=== PATIENT | male | born 1945 | race Caucasian/White ===

== ENCOUNTER 2024-11-15 12:04 | Inpatient (IN) | payer OTHER, MEDICARE ==
[~2024-11-15] VITALS: Ht 174 cm; Wt 61.4 kg
[~2024-11-15 12:04] MED LIST: PRED20TA2 PO
--- NOTE | 2024-11-15 12:35 | ED.PDOC ---
HPI Comments 79 y.o male with PMHx of VA, COPD, CHF, thyroid, and hyperlipidemia, presents to the ED for a chief complaint of substernal chest pain and exertional SOB that presented today. Patient described pain as sharp, constant, states he took ASA before calling 911 and on scene EMS gave 0.4mg Nitroglycerin which brought pain level from a 3/10 to a 0/10. Patient reports recent 5 day admission at [facility] for PNA and was discharged yesterday with antibiotics. Patient is concerned of chest pain due to cardiac history. Patient is on 2 liters of oxygen at home s/p recent d/c but increased it to 3 liters with some relief. He denies any tobacco use. Chief Complaint: Chest Pain Time Seen by MD: 12:09 Reviewed Notes: Nurses Notes, Bi Architect Notes, Medications, Allergies Allergies: Coded Allergies: NO KNOWN ALLERGIES (Unverified , 11/15/24) Information Source: Patient, Emergency Med Personnel Mode of Arrival: EMS Severity: Moderate Timing: Hours Duration: Since onset Prehospital treatment: 12 Lead EKG, Anatomic Pathologist, NTG Location: Substernal Radiation: No Radiation Quality: Sharp Onset: At Rest Cardiac Risk Factors: Hyperlipidemia, HTN, Diabetes PE Risk Factors: None History of: Similar pain in past, VA Modifying Factors: Nothing Associated Signs and Symptoms: SOB Past Medical History PAST MEDICAL HISTORY: CHF, COPD, DM, High Lipids, VA, Thyroid Surgical History: Cholecystectomy, Tonsillectomy Surgical History (Other): AAA repair Family History Family History: Family hx of heart apryl Social History Smoker: Non-Smoker Alcohol: Occasionally Drugs: Denies Drug Use Lives In: Home Constitutional: denies: chills, diaphoresis, fatigue, fever, malaise, sweats, weakness, others EENTM: denies: blurred vision, double vision, ear bleeding, ear discharge, ear drainage, ear pain, ear ringing, eye pain, eye redness, hearing loss, mouth pain, mouth swelling, nasal discharge, nose bleeding, nose congestion, nose pain, photophobia, tearing, throat pain, throat swelling, voice changes, others Respiratory: reports: SOB at rest, shortness of breath, SOB with excertion; denies: cough, hemoptysis, orthopnea, stridor, wheezing, others Cardiovascular: reports: chest pain; denies: dizzy spells, diaphoresis, Dyspnea on exertion, edema, irregular heart beat, left arm pain, lightheadedness, palpitations, PND, syncope, others Gastrointestinal: denies: abdomen distended, abdominal pain, blood streaked bowels, constipated, diarrhea, dysphagia, difficulty swallowing, hematemesis, melena, nausea, poor appetite, poor fluid intake, rectal bleeding, rectal pain, vomiting, others Genitourinary: denies: burning, dysuria, flank pain, frequency, hematuria, incontinence, penile discharge, penile sore, pain, testicle pain, testicle swelling, urgency, others Neurological: denies: dizziness, fainting, headache, left sided numbness, left sided weakness, numbness, paresthesia, pre-existing deficit, right sided numbness, right sided weakness, seizure, speech problems, tingling, tremors, weakness, others Musculoskeletal: denies: back pain, gout, joint pain, joint swelling, muscle pain, muscle stiffness, neck pain, others Integumetry: denies: bruises, change in color, change in hair/nails, dryness, laceration, lesions, lumps, rash, wounds, others Allergic/Immunocompromised: denies: Difficulty Healing, Frequent Infections, Hives, Itching, others Hematologic/Lymphatic: denies: anemia, blood clots, easy bleeding, easy bruising, swollen glands, others Endocrine: denies: excessive hunger, excessive sweating, excessive thirst, excessive urination, flushing, intolerance to cold, intolerance to heat, unexplained weight gain, unexplained weight loss, others Psychiatric: denies: anxiety, bipolar disorder, depression, hopeless, panic disorder, schizophrenia, sleepless, suicidal, others All Other Systems: Reviewed and Negative Physical Exam General Appearance: Moderate Distress HEENT: Normal ENT Inspection, Pharynx Normal, TMs Normal Neck: Full Range of Motion, Non-Tender, Normal, Normal Inspection Respiratory: Chest Non-Tender, Lungs Clear, No Accessory Muscle Use, No Respiratory Distress, Normal Breath Sounds Cardiovascular: No Edema, No JVD, No Murmur, No Gallop, Normal Peripheral Pulses, Regular Rate/Rhythm Breast Exam: Deferred Gastrointestinal: No Organomegaly, Non Tender, No Pulsatile Mass, Normal Bowel Sounds, Soft, Other (Scar mid abdomen from AAA repair) Genitalia: Deferred Pelvic: Deferred Rectal: Deferred Extremities: No calf tenderness, Normal capillary refill, Normal inspection, Normal range of motion, Non-tender, No pedal edema Musculoskeletal : Apperance: Normal Neurologic: Alert, networking engineer II-XII nml as Tested, Motor Weakness, Normal Affect, Normal Mood, No Sensory Deficits Cerebellar Function: Normal Reflexes: Normal Skin: Dry, Normal Color, Warm Lymphatic: No Adenopathy EKG EKG : Pulse Rate (adult): 100 Cardiac Rhythm: ST Hypertrophy: LAE Was a procedure done? Was a procedure done?: No CP Differential Dx Differential Diagnosis: Anxiety / Panic Attack, Electrolyte Disorder, VA, Pulmonary Embolus, Sinus Tachycardia Differential Diagnosis: Aortic dissection, Chest Wall Pain, Costochondritis, Gastritis, Myocardial Infarction, Pericarditis, Pneumonia, Pneumothorax X-Ray, Labs, Meds, VS Vital Signs Date Time Temp Pulse Resp B/P (MAP) Pulse Ox O2 Delivery O2 Flow Rate FiO2 11/15/24 15:19 88 16 98 Room Air* 0 21 11/15/24 15:18 98.4 88 16 107/68 (81) 98 98.4 11/15/24 15:15 83 11/15/24 12:35 100 11/15/24 12:07 100 11/15/24 12:05 98.9 86 22 90/58 (69) 96 Lab Test 11/15/24 14:30 11/15/24 13:06 Range/Units Troponin I High Sensitivity 475 *H 169 *H </=54 ng/L White Blood Count 9.0 4.4-10.8 10^3/uL Red Blood Count 4.15 L 4.5-5.90 10^6/uL Hemoglobin 12.5 L 13.5-17.5 g/dL Hematocrit 37.9 L 41.0-53.0 % Mean Corpuscular Volume 91.3 80.0-100.0 fL Mean Corpuscular Hemoglobin 30.2 28.0-32.0 pg Mean Corpuscular Hemoglobin Concent 33.0 32.0-36.0 g/dL Red Cell Distribution Width 14.9 H 11.8-14.3 % Platelet Count 213 140-450 10^3/uL Mean Platelet Volume 6.5 L 6.9-10.8 fL Neutrophils (%) (Auto) 86.9 H 37.0-80.0 % Lymphocytes (%) (Auto) 5.9 L 10.0-50.0 % Monocytes (%) (Auto) 6.8 0.0-12.0 % Eosinophils (%) (Auto) 0.3 0.0-7.0 % Basophils (%) (Auto) 0.1 0.0-2.0 % Neutrophils # (Auto) 7.8 1.6-8.6 10 ^3/uL Lymphocytes # (Auto) 0.5 0.4-5.4 10 ^3/uL Monocytes # (Auto) 0.6 0-1.3 10 ^3/uL Eosinophils # (Auto) 0 0-0.8 10 ^3/uL Basophils # (Auto) 0 0-0.2 10 ^3/uL Nucleated Red Blood Cells 0.1 % Sodium Level 131 L 136-145 mmol/L Potassium Level 3.7 3.5-5.1 mmol/L Chloride Level 99 98-107 mmol/L Carbon Dioxide Level 23 20-31 mmol/L Anion Gap 9 5-15 Blood Urea Nitrogen 22 9-23 mg/dL Creatinine 1.04 0.700-1.30 mg/dL Glomerular Filtration Rate Calc 74 >90 mL/min BUN/Creatinine Ratio 21.2 H 10.0-20.0 Serum Glucose 104 74-106 mg/dL Calcium Level 9.4 8.7-10.4 mg/dL B-Type Natriuretic Peptide 100.61 0-100 pg/mL EXAM: XY CHEST PORTABLE IMPRESSION: No acute cardiopulmonary disease. IV Hep-Lock was established The BNP is 100 The 1st troponin came back at 169 The repeat troponin level came back at 475 A repeat EKG was also done with no sign of any ST-elevation but because of the changes, we did consult with Cardiology. The billet cutter did come bedside and evaluate the patient. We did order an echocardiogram and also ordered the patient to be heparinized with a bolus of 4000 units as well as a heparin drip The patient was being admitted We did discuss the findings with the patient and his family member and they understand and agree with the management. We will continue to monitor the patient's blood pressure as well as pain scale Images Reviewed?: Images reviewed and evaluated by me Time of 1ST Reevaluation: 12:34 Reevaluation 1ST: Unchanged Patient Education/Counseling: Diagnosis, Treatment, Prognosis Family Education/Counseling: No Family Present Departure 1 Departure Time of Disposition: 15:31 Impression: Primary Impression: Non-STEMI (non-ST elevated myocardial infarction) Additional Impression: Acute chest pain Disposition: ADMITTED INPATIENT Admit to: Tele Condition: Fair Critical Care Note Critical Care Time?: Yes (45 min-critical care time only) Stability Stability form required: Yes Unstable for transfer: Telemetry monitoring (Telemetry monitoring required), ED Physician Assesment (Clinical assesment) Heart Score Heart Score: Heart Score Response (Comments) Value History Moderate Suspicious 1 EKG Repolarization Disturb 1 Age >65 2 Risk Factors >3 or Hx ASHD 2 Troponin >3 x's Normal limit 2 Total 8 I personally scribed for ARTURO MARKS MD ([email or web address]) on 11/15/24 at 12:35. Electronically submitted by Argelia Lopez ([email or web address]). I personally scribed for ARTURO MARKS MD ([email or web address]) on 11/15/24 at 13:19. Electronically submitted by Argelia Lopez ([email or web address]). ARTURO MARKS MD Nov 15, 2024 12:35
--- NOTE | 2024-11-15 12:37 | DVH ---
EXAM: XY CHEST PORTABLE Indication: cp Technique: Single frontal view of the chest was obtained Comparison: None FINDINGS: Lines and Tubes: None Lungs: No focal consolidation. Pleura: No effusion. No pneumothorax. Cardiomediastinal contours: Unremarkable Bones: No acute osseous abnormality. IMPRESSION: No acute cardiopulmonary disease.
[2024-11-15 13:20] LABS: Basophils # (auto) 0 10 ^3/uL (0-0.2); Basophils % (auto) 0.1 % (0.0-2.0); Eosinophils # (auto) 0 10 ^3/uL (0-0.8); Eosinophils % (auto) 0.3 % (0.0-7.0); Hematocrit 37.9 % (41.0-53.0); Hemoglobin 12.5 g/dL (13.5-17.5); Lymphocytes # (auto) 0.5 10 ^3/uL (0.4-5.4); Lymphocytes % (auto) 5.9 % (10.0-50.0); Mean Corpuscular Hemoglobin 30.2 pg (28.0-32.0); Mean Corpuscular Volume 91.3 fL (80.0-100.0); Monocytes # (auto) 0.6 10 ^3/uL (0-1.3); Monocytes % (auto) 6.8 % (0.0-12.0); Neutrophils # (auto) 7.8 10 ^3/uL (1.6-8.6); Neutrophils % (auto) 86.9 % (37.0-80.0); Nucleated Red Blood Cells % 0.1 %; Platelet Count (auto) 213 10^3/uL (140-450); Red Blood Cells 4.15 10^6/uL (4.5-5.90); Red Cell Distribution Width 14.9 % (11.8-14.3)
[2024-11-15 13:35] LABS: Chloride 99 mmol/L (98-107); Potassium 3.7 mmol/L (3.5-5.1)
[2024-11-15 13:36] LABS: Anion Gap 9 (5-15); Calcium 9.4 mg/dL (8.7-10.4); Carbon Dioxide 23 mmol/L (20-31)
[2024-11-15 13:40] LABS: Sodium 131 mmol/L (136-145)
[2024-11-15 13:41] LABS: BUN/Creatinine Ratio 21.2 (10.0-20.0); Blood Urea Nitrogen 22 mg/dL (9-23); Glucose 104 mg/dL (74-106)
[2024-11-15 15:19] VITALS: PULSE 88; RESP 16; O2SAT 98
[2024-11-15] MEDS ORDERED: MORPHINE SULFATE INJ 2 MG/ml SYRG IV PRN ×3 (15:30→16:15)
[2024-11-15] MEDS ORDERED: NITROGLYCERIN 0.4 MG SL TAB SL PRN ×2 (15:30→16:15)
--- NOTE | 2024-11-15 15:33 | ECG ---
[facility] Test Date: 2024-11-15 Test Time: 15:15:04 Pat Name: LIANNA MARTINEZ Department: ED Room: 0295T Gender: M City Manager: : 1945 Requested By: ARTURO MARKS Order Number: [id number] Reading MD: Sravan Bedolla Measurements Intervals Badger Rate: 83 P: 88 UT: 143 QRS: 77 QRSD: 96 T: 52 QT: 343 QTc: 403 Interpretive Statements Sinus rhythm Consider right atrial enlargement Nonspecific T abnormalities, anterior leads Electronically Signed On 11-18-2024 16:32:18 PST by Sravan Bedolla Please click the below link to view image of tracing.
[2024-11-15] MEDS: HEPARIN SODIUM (PORCINE) 5000 UNITS/ML 1ML VIAL IV ONE ×2 (15:55→15:59)
--- NOTE | 2024-11-15 15:59 | DVHINCON2 ---
Date Seen: Nov 15, 2024 Referring Physician MD Tess Reason for Consultation NSTEMI History of Present Illness This is a 79-year-old man who presented to the emergency room via EMS with a chief complaint of chest pain for approximately 1.5 hours prior to arrival. Localizes his chest pain to the left inframammary area and radiating across towards the right, pressure/heaviness like, constant, and associated with sh ortness of breath. He was medicated by EMS with NTG SL 0.4 mg x1 and unspecified ASA with successful relief of symptoms. The patient reports being discharged home from [facility] yesterday after a 5-day admission with the diagnoses of COPD exacerbation and PNA. Patient also reports undergoing a recent cardiac catheterization and coronary angiogram with successful PCI including one JASON at [facility] on 06/2023 and sent home only on single-antiplatelet therapy with ASA. He underwent multiple 12 lead electrocardiogram revealing a sinus rhythm with nonspecific ST changes to anteroseptal leads. Troponin levels are trending up with latest in the 400s ng/L warranting urgent Cardiology consultation. Other medical history includes abdominal aortic aneurysm repair on 2019, congestive heart failure, hypertension, dyslipidemia, COPD with O2 dependence, and remote history of tobacco use. Past Medical History Past medical history reviewed. No other significant than mentioned above. Past Surgical History PTCA with stent placement x1, 06/2024 AAA repair, 2019 Cholecystectomy Family History Family history reviewed. Social History Denies the use of illicit drugs, alcohol, or tobacco use. Stopped tobacco use 17 years ago. Allergies: Coded Allergies: NO KNOWN ALLERGIES (Unverified , 11/15/24) Home Meds Unable to retrieve home medications at this time. Current Medications Current Medications Medications (Trade) Dose Ordered Sig/Gregorio Route PRN Reason Start Time Stop Time Status Last Admin Heparin Sodium/ Dextrose 250 ml @ 7.188 mls/ hr Q24H IV 11/15/24 15:30 UNV Review of Systems Constitutional: No symptom reported Ears, Nose, & Throat: No symptom reported Eyes: No symptom reported Neurological: No symptoms reported Pulmonary/Respiratory: SOB Cardiovascular: Chest pain Gastrointestinal: No symptom reported Genitourinary: No symptom reported Musculoskeletal: No symptom reported Skin: No symptom reported Psychiatric: No symptom reported Endocrine: No symptom reported Hemotologic/Lymphatic: No symptom reported Vital Signs Vital Signs Date Time Temp Pulse Resp B/P (MAP) Pulse Ox O2 Delivery O2 Flow Rate FiO2 11/15/24 15:19 88 16 98 Room Air* 0 21 11/15/24 15:18 98.4 107/68 (81) 98.4 Physical Exam General Appearance: Cooperative. Well developed. Well nourished. In no acute distress Head Exam: Normal inspection Neck Exam: Normal inspection. Non-tender. Normal alignment Pulmonary/Respiratory: Chest non-tender. Diminished bilateral breath sounds Cardiovascular/Chest: Regular rate and rhythm. S1, S2. Sinus rhythm with nonspecific anteroseptal ST changes. No murmurs. Peripheral Pulses: 2+ Radial (R). 2+ Radial (L). 2+ Pedal (R). 2+ Pedal (L) Abdominal Exam: Normal bowel sounds. Soft. Nontender. No hepatospenomegaly. No masses Ankle Exam: Negative ankle edema Lower extremities: Negative lower extremity edema Neuro/Mental Status: A&O x4. Coherent Thoughts/Psych: Normal thought pattern. Appropriate mood and affect. Good judgement and insight Appearance: In no acute distress Skin Exam: Normal inspection. Normal color. Warm. Dry Labs/Diagnostic Data Labs Test 11/15/24 14:30 11/15/24 13:06 Range/Units Troponin I High Sensitivity 475 *H </=54 ng/L White Blood Count 9.0 4.4-10.8 10^3/uL Red Blood Count 4.15 L 4.5-5.90 10^6/uL Hemoglobin 12.5 L 13.5-17.5 g/dL Hematocrit 37.9 L 41.0-53.0 % Mean Corpuscular Volume 91.3 80.0-100.0 fL Mean Corpuscular Hemoglobin 30.2 28.0-32.0 pg Mean Corpuscular Hemoglobin Concent 33.0 32.0-36.0 g/dL Red Cell Distribution Width 14.9 H 11.8-14.3 % Platelet Count 213 140-450 10^3/uL Mean Platelet Volume 6.5 L 6.9-10.8 fL Neutrophils (%) (Auto) 86.9 H 37.0-80.0 % Lymphocytes (%) (Auto) 5.9 L 10.0-50.0 % Monocytes (%) (Auto) 6.8 0.0-12.0 % Eosinophils (%) (Auto) 0.3 0.0-7.0 % Basophils (%) (Auto) 0.1 0.0-2.0 % Neutrophils # (Auto) 7.8 1.6-8.6 10 ^3/uL Lymphocytes # (Auto) 0.5 0.4-5.4 10 ^3/uL Monocytes # (Auto) 0.6 0-1.3 10 ^3/uL Eosinophils # (Auto) 0 0-0.8 10 ^3/uL Basophils # (Auto) 0 0-0.2 10 ^3/uL Nucleated Red Blood Cells 0.1 % Sodium Level 131 L 136-145 mmol/L Potassium Level 3.7 3.5-5.1 mmol/L Chloride Level 99 98-107 mmol/L Carbon Dioxide Level 23 20-31 mmol/L Anion Gap 9 5-15 Blood Urea Nitrogen 22 9-23 mg/dL Creatinine 1.04 0.700-1.30 mg/dL Glomerular Filtration Rate Calc 74 >90 mL/min BUN/Creatinine Ratio 21.2 H 10.0-20.0 Serum Glucose 104 74-106 mg/dL Calcium Level 9.4 8.7-10.4 mg/dL B-Type Natriuretic Peptide 100.61 0-100 pg/mL Assessment Chest pain rule out progressive coronary artery disease Coronary artery disease status post PTCA with JASON x1 on 06/2024, on ASA Unspecified history of congestive heart failure, compensated History of AAA repair Hypertension Dyslipidemia Plan/Recommendation (Dr. Pedroza) Patient seen and examined at bedside by Dr. Pedroza. We agree with initiation of Heparin drip per pharmacy protocol for ACS. Continue serial troponin levels as well as chest pain protocol. Initiate DAPT including loading dose of Clopidogrel. We will obtain a transthoracic echocardiogram to further delineate structural heart disease. Obtain medical records from [facility] as the hospital reports a recent PTCA with stent placement with single-antiplatelet therapy at discharge. Monitor ECG changes and notify. Tentatively invasive cardiac work- up indicated at first available. Kindly call in the setting of acute changes, active chest pain, or progressive ECG changes. Thank you for allowing us to participate in this patient's care. Please call if you have any questions or concerns. Critical care time: 35 min. This medical document was created using an electronic medical record system with voice recognition software and computerized dictation system. Although this document has been carefully reviewed, there might still be some phonetic and typographical errors. Occasional wrong-word or ``sound-alike substitutions may have occurred due to the inherent limitations of voice recognition software. These areas are purely typographical due to imperfections of the software programs and do not reflect any compromise in the patient's medical care. Please read the chart carefully and recognize, using context, where these substitutions have occurred. Plan discussed with: Patient, Other NYHA Physical activity limitations: NA Date of Service: Nov 15, 2024 Billing Provider: ALBA PEDROZA MD Cardiology Common Codes: 36315-[id number] CARE 30-74 MIN MABEL DURANT PLANNING TECHNICIAN Nov 15, 2024 15:59
--- NOTE | 2024-11-15 16:08 | DVHHP2 ---
History of Present Illness Reason for Visit: Non-STEMI (non-ST elevated myocardial infarction) History of Present Illness The patient is a 79-year-old male with multiple past medical history including COPD, CHF, IL, and diabetes mellitus who presented to [facility] ED with complaint of chest pain. Patient reports symptoms progressively get worse with substernal chest pain, sharp in nature, constant, associated shortness of breaths on exertion, SOB at rest, getting worse that prompted this visit. Patient was seen and evaluated in the ED, laboratory data shows WBC 9.0, platelets 2 one three, sodium 131, potassium 3.7, BUN 22, creatinine 1.04, GFR 74, glucose 104, BNP 100, troponin was 169. Chest x-ray show no acute cardiopulmonary disease. Patient was given aspirin 162 mg p.o. x1, consult cardiology, please see medication orders section in the computer. On my assessment, patient denies chest pain at this moment, no dizziness, no headache, no diaphoresis, currently on oxygen, no nausea, no vomiting, no fever, no chills. Patient was admitted for further evaluation and medical management. Past Medical History CHF, COPD, DM, High Lipids, IL, Thyroid Past Surgical History Cholecystectomy, Tonsillectomy, AAA repair Family History Reviewed, noncontributory to the management of this case. Past Social History The patient lives at home, denies smoking, alcohol or illicit drugs abuse. Review of Systems Constitutional: Yes: Weakness; No: Fever, Chills, Sweats, Malaise, Other Eyes: No: Pain, Vision change, Conjunctivae inflammation, Eyelid inflammation, Other, Redness ENT: No: Ear pain, Ear discharge, Nose pain, Nose discharge, Nose congestion, Mouth pain, Mouth swelling, Throat pain, Throat swelling, Other Respiratory: Shortness of breath, SOB with excertion, Other (SOB at rest); No: Cough, Dry, Wheezing, Hemoptysis, Pleuritic Pain, Sputum, Wheezing Cardiovascular: Chest Pain; No: Palpitations, Orthopnea, Paroxysmal Noc. Dyspnea, Edema, Lt Headedness, Other Gastrointestinal: No: Nausea, Vomiting, Abdominal Pain, Diarrhea, Constipation, Melena, Hematochezia, Other Genitourinary: No Dysuria, No Frequency, No Incontinence, No Hematuria, No Retention, No Other Musculoskeletal: No: other, neck pain, shoulder pain, arm pain, back pain, hand pain, leg pain, foot pain Skin: No: Rash, Lesions, Jaundice, Bruising, Other Neurological: No: Weakness, Numbness, Incoordination, Change in speech, Confusion, Seizures, Other Allergies: Coded Allergies: NO KNOWN ALLERGIES (Unverified , 11/15/24) Medications Current Medications Medications Dose Ordered Sig/Gregorio Route Start Time Stop Time Status Last Admin Dose Admin Heparin Sodium/ Dextrose 250 ml @ 7 mls/hr Q24H IV 11/15/24 15:30 Aspirin 81 mg DAILY PO 11/16/24 10:00 Nitroglycerin 0.4 mg Q5MINP PRN SL 11/15/24 15:30 Morphine Sulfate 2 mg Q30M PRN IV 11/15/24 15:30 Clopidogrel Bisulfate 75 mg DAILY PO 11/16/24 10:00 UNV Atorvastatin Calcium 40 mg HS PO 11/15/24 22:00 UNV Exam Vital Signs Vital Signs Date Time Temp Pulse Resp B/P (MAP) Pulse Ox O2 Delivery O2 Flow Rate FiO2 11/15/24 15:19 88 16 98 Room Air* 0 21 11/15/24 15:18 98.4 107/68 (81) 98.4 General Appearance: Alert, Oriented X3, Cooperative, No acute distress HEENT: Atraumatic, PERRLA, EOMI, Mucous membr. moist/pink Respiratory: Clear to auscultation, Normal air movement Cardiovascular: Regular rate, Normal S1, Normal S2, No murmurs Abdominal: Normal bowel sounds, Soft, No tenderness, No hepatospenomegaly, No masses Extremities: No clubbing, No cyanosis, No edema, Normal pulses, No tend erness/swelling Skin: No rashes, No breakdown, No significant lesion Neuro: Normal speech, Normal tone, Sensation intact, Cranial nerves 3-12 NL, Reflexes 2+, Other (Generalized weakness) Psych/Mental Status: Mental status NL, Mood NL Labs/Xrays Labs Test 11/15/24 14:30 11/15/24 13:06 Range/Units Troponin I High Sensitivity 475 *H </=54 ng/L White Blood Count 9.0 4.4-10.8 10^3/uL Red Blood Count 4.15 L 4.5-5.90 10^6/uL Hemoglobin 12.5 L 13.5-17.5 g/dL Hematocrit 37.9 L 41.0-53.0 % Mean Corpuscular Volume 91.3 80.0-100.0 fL Mean Corpuscular Hemoglobin 30.2 28.0-32.0 pg Mean Corpuscular Hemoglobin Concent 33.0 32.0-36.0 g/dL Red Cell Distribution Width 14.9 H 11.8-14.3 % Platelet Count 213 140-450 10^3/uL Mean Platelet Volume 6.5 L 6.9-10.8 fL Neutrophils (%) (Auto) 86.9 H 37.0-80.0 % Lymphocytes (%) (Auto) 5.9 L 10.0-50.0 % Monocytes (%) (Auto) 6.8 0.0-12.0 % Eosinophils (%) (Auto) 0.3 0.0-7.0 % Basophils (%) (Auto) 0.1 0.0-2.0 % Neutrophils # (Auto) 7.8 1.6-8.6 10 ^3/uL Lymphocytes # (Auto) 0.5 0.4-5.4 10 ^3/uL Monocytes # (Auto) 0.6 0-1.3 10 ^3/uL Eosinophils # (Auto) 0 0-0.8 10 ^3/uL Basophils # (Auto) 0 0-0.2 10 ^3/uL Nucleated Red Blood Cells 0.1 % Sodium Level 131 L 136-145 mmol/L Potassium Level 3.7 3.5-5.1 mmol/L Chloride Level 99 98-107 mmol/L Carbon Dioxide Level 23 20-31 mmol/L Anion Gap 9 5-15 Blood Urea Nitrogen 22 9-23 mg/dL Creatinine 1.04 0.700-1.30 mg/dL Glomerular Filtration Rate Calc 74 >90 mL/min BUN/Creatinine Ratio 21.2 H 10.0-20.0 Serum Glucose 104 74-106 mg/dL Calcium Level 9.4 8.7-10.4 mg/dL B-Type Natriuretic Peptide 100.61 0-100 pg/mL PATIENT: SABRINA NATION ACCT: [id number] UNIT: [id number] : 1945 LOC: ER ROOM / BED: / AGE / SEX: 79 / M ADM STATUS: REG ER SERVICE 1217 ORDERING PHYSICIAN: ARTURO MARKS MD PROCEDURE(s): CXRP - CHEST PORTABLE REASON: cp ORDER NUMBER(s): [id number], ACCESSION NUMBER(s): [id number] EXAM: XY CHEST PORTABLE Indication: cp Technique: Single frontal view of the chest was obtained Comparison: None FINDINGS: Lines and Tubes: None Lungs: No focal consolidation. Pleura: No effusion. No pneumothorax. Cardiomediastinal contours: Unremarkable Bones: No acute osseous abnormality. IMPRESSION: No acute cardiopulmonary disease. Assessment/Plan Assessment/Plan Acute chest pain Acute respiratory distress Generalized weakness Non-STEMI (non-ST elevated myocardial infarction) Plan 1. Admit to telemetry unit 2. Breathing treatment 3. Pain control management 4. Management of fluids and electrolytes 5. Consultation for Cardiology 6. Diagnostic tests chest x-ray 7. DVT prophylaxis-on aspirin 8. Repeat labs CBC, CMP in a.m. 9. Continue with current medical management 10. Treatment plan discussed with patient and RN. Patient verbalized understanding. Plan discussed with: Patient, Other (RN) My Orders Orders - SEBAS WAGONER DNP Procedure Category Date Status Time Consistent DIET 11/15/24 Transmitted Carb(Ccho)Diabetes Dinner Glucose Blood PHA 11/15/24 Transmitted (Accu-Chek Comfort 17:00 Mild Sliding Scale PHA 11/15/24 Transmitted 17:00 Dextrose 50% Syringe PHA 11/15/24 Transmitted 16:15 Admit ADMIT 11/15/24 Transmitted 16:04 Allergies BREN 11/15/24 In Process 16:04 Code Status CODE 11/15/24 Transmitted 16:04 0.9% Ns 1000 Ml PHA 11/15/24 Transmitted 16:15 Oxygen Per Hour RT 11/15/24 Transmitted 16:04 Hydrocodone-Acet PHA 11/15/24 Transmitted 5/325mg Tab ([place] 16:15 Ondansetron Hcl PHA 11/15/24 Transmitted (Zofran) 16:15 Docusate Sodium PHA 11/15/24 Transmitted Capsule (Colace 16:15 Fall Risk Precautions BREN 11/15/[address] 16:04 Complete Blood Count LAB 11/16/24 Verified 04:00 Comprehensive LAB 11/16/24 Verified Metabolic Panel 04:00 Condition: Serious BREN 11/15/24 In Process 16:04 Acetaminophen Tablet PHA 1/20/25 Transmitted (Tylenol Tablet) 16:15 Morphine Sulfate PHA 11/15/24 Transmitted Injection 16:15 Sequential BREN 11/15/24 In Process Compression Device Nitroglycerin PHA 11/15/24 Transmitted Sublingual (Ntrostat 16:15 Morphine Sulfate PHA 11/15/24 Transmitted Injection 16:15 Stat Ekg For Chest BREN 11/15/24 In Process Pain 16:04 Oxygen By Nasal RT 11/15/24 Transmitted Cannula 16:04 Problem List: (1) Acute chest pain (2) Acute respiratory distress (3) Generalized weakness (4) Non-STEMI (non-ST elevated myocardial infarction) Date of Service: Nov 15, 2024 Billing Provider: SEBAS WAGONER DNP Common Visit Codes: [id number] INP/OBS CARE (HIGH) SEBAS WAGONER DNP Nov 15, 2024 16:08
[2024-11-15] MEDS: HEPARIN DRIP/D5W 100UNITS/ML 250 ML IV SCH (16:09)
[2024-11-15] MEDS ORDERED: DEXTROSE (50%) 50ML SYRG IV PRN (16:15)
[2024-11-15] MEDS ORDERED: ACETAMINOPHEN 325 MG TAB PO PRN (16:15)
[2024-11-15] MEDS ORDERED: DOCUSATE SOD 100 MG CAP PO PRN (16:15)
[2024-11-15] MEDS ORDERED: HYDROcodone-ACET 5/325MG TAB PO PRN (16:15)
[2024-11-15] MEDS ORDERED: ONDANSETRON HCL 4 MG/2 ML VIAL IV PRN (16:15)
[2024-11-15 16:56] LABS: INR 1.14 (0.9-1.15); Partial Thromboplastin Time 28.5 SEC (24.5-34.5); Prothrombin Time 11.9 sec (9.3-11.8)
[2024-11-15] MEDS: ACCU-CHEK COMFORT CURVE STRIP VI SCH (17:00)
[2024-11-15] MEDS: InsuLIN REG 1unit/0.01ml Soln (100units/ml) SC SCH (17:00)
[2024-11-15] MEDS: CLOPIDOGREL BISULFATE 75 MG TAB PO ONE (17:10)
[2024-11-15 17:11] LABS: Magnesium 2.1 mg/dL (1.6-2.6)
[2024-11-15] MEDS: SODIUM CHLORIDE 0.9% 1,000 ML IV SCH (17:16)
[2024-11-15 21:35] VITALS: PULSE 73; RESP 18; O2SAT 100
[2024-11-15] MEDS: ATORVASTATIN 20 MG TAB PO SCH (21:58)
[2024-11-15 22:55] LABS: INR 1.17 (0.9-1.15); Partial Thromboplastin Time 50.1 SEC (24.5-34.5); Prothrombin Time 12.2 sec (9.3-11.8)
[2024-11-16] VITALS (11 sets, daily range): BP systolic 104–126; BP diastolic 57–79; PULSE 67–90; RESP 16–20; TEMP 97.4–98.7; O2SAT 95–100
[2024-11-16] MEDS ORDERED: TAMS0.4C39 PO (02:18)
[2024-11-16] MEDS ORDERED: ASPI81CH59 PO (02:18)
[2024-11-16] MEDS ORDERED: ALBUAER3 IN (02:18)
[2024-11-16] MEDS ORDERED: ATOR-47 PO (02:18)
[2024-11-16] MEDS ORDERED: ESOM20CA PO (02:18)
[2024-11-16] MEDS ORDERED: CHOL20007 PO (02:18)
[2024-11-16] MEDS ORDERED: METO25TA36 PO (02:18)
[2024-11-16] MEDS ORDERED: FLUT500M2 IN (02:18)
[2024-11-16] MEDS ORDERED: TICA90TA PO (02:18)
[2024-11-16] MEDS ORDERED: TIOT17SP IN (02:18)
[2024-11-16] MEDS ORDERED: DOCU-94 PO (02:18)
[2024-11-16] MEDS ORDERED: FINA5TAB4 PO (02:18)
[2024-11-16] MEDS ORDERED: LOSA-533 PO (02:18)
[2024-11-16] MEDS ORDERED: ACET325T82 PO (02:18)
[2024-11-16] MEDS ORDERED: TRAZ-181 PO (02:18)
[2024-11-16] MEDS ORDERED: GUAI-41 PO (02:18)
[2024-11-16] MEDS ORDERED: LEVO137T3 PO (02:18)
[2024-11-16] MEDS ORDERED: TRAZ-227 PO (02:18)
[2024-11-16] MEDS ORDERED: IPRA0.00 IN (02:18)
[2024-11-16 07:26] LABS: Basophils # (auto) 0 10 ^3/uL (0-0.2); Eosinophils # (auto) 0 10 ^3/uL (0-0.8); Eosinophils % (auto) 0.4 % (0.0-7.0); Hematocrit 35.9 % (41.0-53.0); Lymphocytes # (auto) 0.7 10 ^3/uL (0.4-5.4); Lymphocytes % (auto) 14.1 % (10.0-50.0); Mean Corpuscular Hgb Conc. 33.3 g/dL (32.0-36.0); Monocytes # (auto) 0.4 10 ^3/uL (0-1.3); Monocytes % (auto) 8.5 % (0.0-12.0); Platelet Count (auto) 175 10^3/uL (140-450); Red Blood Cells 3.99 10^6/uL (4.5-5.90); Red Cell Distribution Width 15.1 % (11.8-14.3); White Blood Cell 5.1 10^3/uL (4.4-10.8)
[2024-11-16 07:45] LABS: INR 1.12 (0.9-1.15); Partial Thromboplastin Time 45.8 SEC (24.5-34.5); Prothrombin Time 11.7 sec (9.3-11.8)
[2024-11-16 07:46] LABS: Alanine Aminotransferase 24 U/L (7-40); Albumin 3.6 g/dL (3.2-4.8); Alkaline Phosphatase 67 U/L (46-116); Anion Gap 8 (5-15); Aspartate Aminotransferase 27 U/L (13-40); BUN/Creatinine Ratio 20.4 (10.0-20.0); Blood Urea Nitrogen 19 mg/dL (9-23); Carbon Dioxide 25 mmol/L (20-31); Chloride 104 mmol/L (98-107); Potassium 3.9 mmol/L (3.5-5.1); Sodium 137 mmol/L (136-145)
[2024-11-16 07:47] LABS: Bilirubin, Total 0.4 mg/dL (0.2-1.0)
[2024-11-16 07:49] LABS: Glucose 64 mg/dL (74-106); Total Protein 5.6 g/dL (5.7-8.2)
--- NOTE | 2024-11-16 08:06 | DVHPN2 ---
Consult Progress Note Date Seen: Nov 16, 2024 Subjective Review of Systems: CVS:Normal, RESPIRATORY:Normal, NEURO:Normal Objective vital signs Vital Sign Date Time Temp Pulse Resp B/P (MAP) Pulse Ox O2 Delivery O2 Flow Rate FiO2 11/16/24 05:00 98.0 75 20 109/79 (89) 95 98.0 11/15/24 21:35 Nasal Cannula* 2 28 Total Intake and Output 11/15/24 11/15/24 11/16/24 14:59 22:59 06:59 Intake Total 222 ml 400 ml Output Total 1000 ml 1350 ml Balance -778 ml -950 ml medications Current Medications Medications Dose Ordered Sig/Gregorio Route Start Time Stop Time Status Last Admin Dose Admin Heparin Sodium/ Dextrose 250 ml @ 7 mls/hr Q24H IV 11/15/24 15:30 11/15/24 16:09 7 MLS/HR Aspirin 81 mg DAILY PO 11/16/24 10:00 Nitroglycerin 0.4 mg Q5MINP PRN SL 11/15/24 15:30 Morphine Sulfate 2 mg Q30M PRN IV 11/15/24 15:30 Clopidogrel Bisulfate 75 mg DAILY PO 11/16/24 10:00 Atorvastatin Calcium 40 mg HS PO 11/15/24 22:00 11/15/24 21:58 40 MG Diagnostic Test (Pha) 1 strip ACHS 11/15/24 17:00 11/16/24 06:35 1 STRIP Insulin Human Regular ACHS SC 11/15/24 17:00 Dextrose 50 ml UD PRN IV 11/15/24 16:15 Sodium Chloride 1,000 ml @ 60 mls/hr [id number] IV 11/15/24 16:15 11/15/24 17:16 60 MLS/HR Acetaminophen/ Hydrocodone Bitart 1 tab Q4HP PRN PO 11/15/24 16:15 Ondansetron HCl 4 mg Q4HP PRN IV 11/15/24 16:15 Docusate Sodium 100 mg BIDPRN PRN PO 11/15/24 16:15 Acetaminophen 650 mg Q6HP PRN PO 11/15/24 16:15 Morphine Sulfate 2 mg Q4HPRN PRN IV 11/15/24 16:15 Nitroglycerin 0.4 mg Q5MINP PRN SL 11/15/24 16:15 Morphine Sulfate 2 mg Q30M PRN IV 11/15/24 16:15 Examination: LUNGS:Normal, CVS:Normal, NEURO:Normal laboratory and microbiology Laboratory Tests 11/16/24 06:46 Test 11/16/24 06:46 Range/Units Serum Glucose 64 L 74-106 mg/dL Problem List/Assessment/Plan Problem List/Assessment/Plan Chest pain rule out progressive coronary artery disease Coronary artery disease status post PTCA with JASON x1 on 06/2024, on ASA Chronic compensated HFpEF History of AAA repair Hypertension Dyslipidemia Pre-diabetes, newly diagnosed Plan/Recommendation (Dr. Bedolla) Scheduled for coronary angiogram with left cardiac catheterization on 11/16/24. All risks and benefits of the procedure were discussed with the patient who agrees to proceed with intervention. In the meantime, continue heparin drip per pharmacy protocol for ACS, DAPT, and lipid-lowering agent. Transthoracic echocardiogram to further delineate structural heart disease is pending at this time. Obtain medical records from [facility] as the hospital reports a recent PTCA with stent placement with single-antiplatelet therapy at discharge. Monitor ECG changes and notify. Kindly call in the setting of acute changes, active chest pain, or progressive ECG changes. Thank you for allowing us to participate in this patient's care. Please call if you have any questions or concerns. This medical document was created using an electronic medical record system with voice recognition software and computerized dictation system. Although this document has been carefully reviewed, there might still be some phonetic and typographical errors. Occasional wrong-word or ``sound-alike substitutions may have occurred due to the inherent limitations of voice recognition software. These areas are purely typographical due to imperfections of the software programs and do not reflect any compromise in the patient's medical care. Please read the chart carefully and recognize, using context, where these substitutions have occurred. Plan discussed with: Patient, Other Date of Service: Nov 16, 2024 Billing Provider: ANIVAL BEDOLLA Sr., MD Cardiology Common Codes: [id number] [facility]( [facility] Nov 16, 2024 08:06
[2024-11-16] MEDS: CLOPIDOGREL BISULFATE 75 MG TAB PO SCH (08:19)
[2024-11-16] MEDS: ASPirin 81 mg TAB PO SCH (08:19)
[2024-11-16] MEDS: HEPARIN DRIP/D5W 100UNITS/ML 250 ML IV SCH (09:00)
--- NOTE | 2024-11-16 09:50 | ECG ---
[facility] Test Date: 2024-11-15 Test Time: 12:07:32 Pat Name: LIANNA MARTINEZ Department: ED Room: [facility] B Gender: M Goods Layer: : 1945 Requested By: ARTURO MARKS Order Number: [id number] Reading MD: Sravan Bedolla Measurements Intervals [place] Rate: 100 P: 85 AK: 131 QRS: 67 QRSD: 90 T: 28 QT: 345 QTc: 445 Interpretive Statements Sinus tachycardia Probable left atrial enlargement Probable inferior infarct, old Electronically Signed On 11-18-2024 16:31:44 PST by Sravan Bedolla Please click the below link to view image of tracing.
--- NOTE | 2024-11-16 13:01 | DVHSR ---
APPROVED REPORT EXAM: Two-dimensional and M-mode echocardiogram with Doppler, color Doppler and Bubble Study. Blood Pressure: 109/79 mmHg INDICATION Chest Pain RISK FACTORS Height: 5'8", Weight: 125 DIMENSIONS LVDd4.1 (3.8-5.7cm)LA (2D)3.9 (1.9-4.0cm)Aortic Root (2.0-3.7cm) LVDs2.8 (2.5-4.0cm)LA (MM) (1.9-4.0cm)Aortic Cusp Exc (1.5-2.0cm) EF (%) 61.0 (55-70%)Rt. Atrium4.0 (1.9-4.0cm)Asc. Aorta cm IVSd1.2 (0.7-1.1cm)RV (D)4.3 (1.8-2.4cm) Mitral Valve MitralMitral Stenosis E wave0.84m/sMV Mean GR.mmHg A wave0.93m/sMV Peak GR.mmHg E/A ratio0.92D MVAcm2 DECEL [id number] 1/2 Timems Aortic Valve Aortic ValveAortic Stenosis V11.29m/Jono Mean GR.10mmHg V21.84m/Jono Peak GR.14mmHg LVOT Diameter2.0 (1.8-2.4cm)Doppler AVA2.20cm2 Tricuspid Valve TR Velocity3.08m/s [id number] Other Information Quality : Technically LimitedRhythm : Technically limited study due to body habitus. Conclusion low normal lvef lvef 50% normal rv function mild left atrium enlarged mild to moderate tricuspid regurg
--- NOTE | 2024-11-16 14:39 | DVHPN2 ---
Subjective Patient denies any symptoms Reviewed: Care Plan, H&P, Labs, Medications Changes from previous H/P or p: No Changes Eyes: No Pain, No Vision change, No Conjunctivae inflammation, No Eyelid inflammation, No Other, No Redness ENT: No Ear pain, No Ear discharge, No Nose pain, No Nose discharge, No Nose congestion, No Mouth pain, No Mouth swelling, No Throat pain, No Throat swelling, No Other Cardiovascular: Chest Pain; No Palpitations, No Orthopnea, No Paroxysmal Noc. Dyspnea, No Edema, No Lt Headedness, No Other Respiratory: No Cough, No Dry; Shortness of breath, SOB with excertion; No Wheezing, No Hemoptysis, No Pleuritic Pain, No Sputum; Other (SOB at rest) Gastrointestinal: No Nausea, No Vomiting, No Abdominal Pain, No Diarrhea, No Constipation, No Melena, No Hematochezia, No Other Genitourinary: No Dysuria, No Frequency, No Incontinence, No Hematuria, No Retention, No Other Musculoskeletal: No other, No neck pain, No shoulder pain, No arm pain, No back pain, No hand pain, No leg pain, No foot pain Skin: No Rash, No Lesions, No Jaundice, No Bruising, No Other Objective Vitals Vital Signs Date Time Temp Pulse Resp B/P (MAP) Pulse Ox O2 Delivery O2 Flow Rate FiO2 11/16/24 13:00 97.9 72 16 122/71 (88) 98 97.9 11/15/24 21:35 Nasal Cannula* 2 28 Intake/Output Intake and Output 11/16/24 07:00 Intake Total 622 ml Output Total 2350 ml Balance -1728 ml Intake Oral 400 ml IV Total 222 ml Output Urine Total 2350 ml General Appearance: Alert, Oriented X3, Cooperative, No acute distress HEENT: Atraumatic, PERRLA Cardiovascular: Normal S1, Normal S2 Abdomen: Normal bowel sounds, Soft, No tenderness Genitourinary: No Apparent Abnormalities Musculoskeletal: Normal sensory function, Normal motor function Neuro: Normal gait, Normal speech Psych/Mental Status: Mental status NL, Mood NL Medications Current Medications Medications Dose Ordered Sig/Gregorio Route Start Time Stop Time Status Last Admin Dose Admin Aspirin 81 mg DAILY PO 11/16/24 10:00 Nitroglycerin 0.4 mg Q5MINP PRN SL 11/15/24 15:30 Morphine Sulfate 2 mg Q30M PRN IV 11/15/24 15:30 Clopidogrel Bisulfate 75 mg DAILY PO 11/16/24 10:00 Atorvastatin Calcium 40 mg HS PO 11/15/24 22:00 11/15/24 21:58 40 MG Diagnostic Test (Pha) 1 strip ACHS 11/15/24 17:00 11/16/24 11:30 1 STRIP Insulin Human Regular ACHS SC 11/15/24 17:00 Dextrose 50 ml UD PRN IV 11/15/24 16:15 Sodium Chloride 1,000 ml @ 60 mls/hr [id number] IV 11/15/24 16:15 11/16/24 08:55 60 MLS/HR Acetaminophen/ Hydrocodone Bitart 1 tab Q4HP PRN PO 11/15/24 16:15 Ondansetron HCl 4 mg Q4HP PRN IV 11/15/24 16:15 Docusate Sodium 100 mg BIDPRN PRN PO 11/15/24 16:15 Acetaminophen 650 mg Q6HP PRN PO 11/15/24 16:15 Morphine Sulfate 2 mg Q4HPRN PRN IV 11/15/24 16:15 Nitroglycerin 0.4 mg Q5MINP PRN SL 11/15/24 16:15 Morphine Sulfate 2 mg Q30M PRN IV 11/15/24 16:15 Heparin Sodium/ Dextrose 250 ml @ 9 mls/hr Q24H IV 11/16/24 09:00 11/16/24 09:00 9 MLS/HR Laboratory Results Laboratory Tests 11/16/24 06:46 Chemistry Test 11/16/24 06:46 Albumin 3.6 g/dL (3.2-4.8) Calcium Level 9.0 mg/dL (8.7-10.4) Total Protein 5.6 g/dL (5.7-8.2) L Coagulation Test 11/15/24 22:16 11/16/24 06:46 Prothrombin Time 12.2 sec (9.3-11.8) H 11.7 sec (9.3-11.8) Prothrombin Time INR 1.17 (0.9-1.15) H 1.12 (0.9-1.15) Activated Partial Thromboplast Time 50.1 SEC (24.5-34.5) H 45.8 SEC (24.5-34.5) H LFT Test 11/16/24 06:46 Alanine Aminotransferase (ALT) 24 U/L (7-40) Alkaline Phosphatase 67 U/L (46-116) Aspartate Amino Transferase (AST) 27 U/L (13-40) Total Bilirubin 0.4 mg/dL (0.2-1.0) Labs and/or images reviewed: Labs reviewed by me, Image(s) reviewed by me Assessment/Plan Assessment/Plan Impression: -NSTEMI type 1 -history of coronary artery disease -history of AAA with endograft -dyslipidemia -primary hypertension -COPD -recent pneumonia treatment Plan: -cardiology consultation with plans for left heart catheterization. Patient was assessed in the preop area -continue dual antiplatelet therapy -antihypertensives -statin -bronchodilators p.r.n. -further course of treatment per Cardiology findings during [facility] Total time spent with patient discussing and formulating plan of care: 35 minutes. This medical document was created using an electronic medical record system with lensgen dictation system. Although this document has been carefully reviewed, there may still be some phonetic and typographical errors. These areas are purely typographical due to imperfections of the software programs, and do not reflect any compromise in the patient's medical care. Plan discussed with: Patient, Other (RN) Date of Service: Nov 17, 2024 Billing Provider: PHUONG HOBBS NP Common Visit Codes: [id number] INP/OBS CARE(HIGH) PHUONG HOBBS NP Nov 16, 2024 14:39
[2024-11-16] MEDS: IODIXANOL 320MG/ML 100ML BTL IV ONE (15:34)
[2024-11-16] MEDS: HEPARIN SODIUM (PORCINE) 5000 UNITS/ML 1ML VIAL ONE ×2 (16:57→17:38)
[2024-11-16] MEDS: ANGIOMAX 250 MG VIAL IV ONE (16:57)
[2024-11-16] MEDS: fentaNYL CITRATE 100 MCG/2 ML VL ONE (16:58)
[2024-11-16] MEDS: VERAPAMIL 2.5MG/ML INJ 2ML VIAL IV ONE (16:58)
[2024-11-16] MEDS: MIDAZOLAM HCL 2MG/2ML 2ml VIAL (1mg/ml) ONE (16:58)
[2024-11-16] MEDS: LIDOCAINE 2%HCL (LOCAL ANESTH.) INJ 20ML MDV ONE (16:59)
[2024-11-16] MEDS: SODIUM CHL 0.9% 0 ML ONE (16:59)
[2024-11-16] MEDS: CLOPIDOGREL BISULFATE 75 MG TAB ONE (19:22)
--- NOTE | 2024-11-16 19:32 | DVHOP2 ---
Operative Report - 2 Report Details Date: 11/16/24 Preop Diagnosis: Unstable angina Postop Diagnosis: Successful angioplasty and stenting of LAD Surgeon: Anival Bedolla MD Anesthesiologist: Conscious sedation Anesthesia: Mac, Local Consent: The patient was informed of the risks and benefits of the procedure. These include but are not limited to complications of anesthesia, postoperative infection, incomplete relief of symptoms, recurrence of symptoms, damage to blood vessels, nerves and tendons, deep venous thrombosis, pulmonary embolism and possible need for repeat surgery in the future. Complications: No complications Estimated Blood Loss: 5 cc Findings: Severe CAD Indications for Surgery: Chest pain Name of Procedure Performed Left heart catheterization, bilateral cine coronary angiography and left ventriculography. PTCA and stenting of left anterior descending coronary artery. Intravascular ultrasound evaluation of the left anterior descending coronary artery. Procedure Details Procedure Details: Prior local anesthesia with 2% lidocaine to the right wrist and full informed consent obtained the patient was prepped and draped in usual fashion followed by placement of a six [place]an sheath into the radial artery under fluoroscopic guidance. We then placed a Jewel catheter and performed angiography of the both right and left coronary arteries and ventriculography. Hemodynamics: Aortic blood pressure was 100/50 with an end-diastolic pressure of 13. There was no gradient across the aortic valve on pullback. Coronary anatomy: The RCA is a medium caliber vessel it has moderate tortuosity and calcification. It gives off the PDA and posterolateral branches which are free of significant disease. The left main is short. It is normal. The left anterior descending coronary artery is moderately to severely calcified. There is moderate calcification at the proximal and midportion. The midportion has significant calcification at the level of a septal at its midportion. There is a 99% subtotal stenosis with SISSY one flow to the distal LAD. The circumflex coronary artery is a large vessel it is normal in its proximal mid and distal segments. It is codominant. It gives off a large obtuse margina l branch. This large obtuse marginal subdivides into two smaller branches. At the bifurcation of the subdivision there is a 99% subtotal stenosis. Ventriculography in the DREW projection reveals an EF of 55%. Anterior hypokinesis noted. Angioplasty was performed for which a three five EBU guide was placed into the left main and a Specter wire placed across the area of stenosis in the left anterior descending coronary artery. We pre-dilated with a two 0 noncompliant balloon. We had difficulty in passing the balloon for which we pre-dilated with a 225 noncompliant balloon subsequent to the rupture of the original balloon given a calcific shelf. We then attempted to place a two 5 x 26 mm stent into the midportion however it would not pass. Upon retracting the stent and balloon the stent was caught up in a calcified plaque and sheared off the balloon. This occurred in the proximal LAD far from with the lesion in question. We could not regain access to the stent with the same balloon for which we placed a 1 mm sprinter balloon across into the proximal part of the stent which was still over the wire. this was performed placing a Guidezilla catheter within the six [place]an guide. This allowed the stent to be pushed deeply into the calcified and stenotic segment at which point we deployed the balloon in adhered to the vessel wall. We then removed this balloon and placed a 2.5 mm balloon and post dilated. We were then able to post dilate the distal segment as well and placed a 2.5 mm by 10 mm stent distal to the stent placed previously. We deployed this at 14 atmospheres with excellent antegrade flow without thrombus formation under dissection. There was distal spasm that was relieved with a inflation with the same balloon at six atmospheres. We then noticed a dissection in the proximal Left anterior descending coronary artery secondary to guide and stent trauma. We placed a 3-0 by 12 mm stent and performed an intravascular ultrasound to ensure appropriate deployment. There was excellent antegrade flow without thrombus formation. No further dissections noted. The patient tolerated the procedure well. Impression: Successful PTCA and stenting of left anterior descending coronary artery with successful intravascular ultrasound evaluation. Normal left ventricular end-diastolic pressure at rest with normal ejection fraction. Two- vessel coronary artery disease as mentioned. Recommendations: Dual antiplatelet therapy with lipid-lowering therapy to continue. Condition Good Disposition Still a Patient Date of Service: Nov 16, 2024 Billing Provider: ANIVAL BEDOLLA Sr., MD Cardiology Common Codes: [id number] INP/OBS CARE (High) Cardiology Procedure Codes: 43655-OZLG HEART CATH W/INTRA INJ ANIVAL BEDOLLA Sr., MD Nov 16, 2024 19:32
[2024-11-16] MEDS: METOPROLOL TARTRATE 25 MG TAB PO SCH (21:09)
[2024-11-17] VITALS (7 sets, daily range): BP systolic 111–133; BP diastolic 60–85; PULSE 75–102; RESP 16–28; TEMP 97.4–98.8; O2SAT 98–100
--- NOTE | 2024-11-17 08:38 | DVHPN2 ---
Consult Progress Note Date Seen: Nov 17, 2024 Subjective Review of Systems: CVS:Normal, RESPIRATORY:Normal, NEURO:Normal Objective vital signs Vital Sign Date Time Temp Pulse Resp B/P (MAP) Pulse Ox O2 Delivery O2 Flow Rate FiO2 11/17/24 01:00 97.4 102 28 133/85 (101) 98 97.4 11/16/24 20:00 Nasal Cannula* 2 28 Total Intake and Output 11/16/24 11/16/24 11/17/24 15:00 23:00 07:00 Intake Total 420 ml 300 ml Output Total 852 ml Balance 420 ml -552 ml medications Current Medications Medications Dose Ordered Sig/Gregorio Route Start Time Stop Time Status Last Admin Dose Admin Aspirin 81 mg DAILY PO 11/16/24 10:00 Nitroglycerin 0.4 mg Q5MINP PRN SL 11/15/24 15:30 Morphine Sulfate 2 mg Q30M PRN IV 11/15/24 15:30 Clopidogrel Bisulfate 75 mg DAILY PO 11/16/24 10:00 Atorvastatin Calcium 40 mg HS PO 11/15/24 22:00 11/16/24 21:09 40 MG Diagnostic Test (Pha) 1 strip ACHS 11/15/24 17:00 11/16/24 11:30 1 STRIP Insulin Human Regular ACHS SC 11/15/24 17:00 Dextrose 50 ml UD PRN IV 11/15/24 16:15 Sodium Chloride 1,000 ml @ 60 mls/hr [id number] IV 11/15/24 16:15 11/16/24 08:55 60 MLS/HR Acetaminophen/ Hydrocodone Bitart 1 tab Q4HP PRN PO 11/15/24 16:15 Ondansetron HCl 4 mg Q4HP PRN IV 11/15/24 16:15 Docusate Sodium 100 mg BIDPRN PRN PO 11/15/24 16:15 Acetaminophen 650 mg Q6HP PRN PO 11/15/24 16:15 Morphine Sulfate 2 mg Q4HPRN PRN IV 11/15/24 16:15 Nitroglycerin 0.4 mg Q5MINP PRN SL 11/15/24 16:15 Morphine Sulfate 2 mg Q30M PRN IV 11/15/24 16:15 Metoprolol Tartrate 12.5 mg BID PO 11/16/24 22:00 11/16/24 21:09 12.5 MG Examination: LUNGS:Normal (+Cough), CVS:Normal, NEURO:Normal laboratory and microbiology Laboratory Tests 11/16/24 06:46 Test 11/16/24 06:46 Range/Units Serum Glucose 64 L 74-106 mg/dL Problem List/Assessment/Plan Problem List/Assessment/Plan Progressive coronary artery disease status post PCI of the LAD x 3DES Coronary artery disease status post PTCA with JASON x1 on 06/2024, on ASA Chronic compensated HFpEF History of AAA repair Hypertension Dyslipidemia Pre-diabetes, newly diagnosed Plan/Recommendation (Dr. Bedolla) The patient with chest pain underwent a successful PTCA and stenting of the LAD with successful intravascular ultrasound evaluation. A transthoracic echocardiogram revealed an LVEF of 50%. Continue DAPT uninterrupted for at least 6 months, lipid-lowering agent, and beta-arnaldo. Follow-up with Cardiology at [facility] within 1-2 weeks post-discharge. Dr. Bedolla would like to monitor overnight prior to clearance for discharge. We will re-evaluate tomorrow a.m. Thank you for allowing us to participate in this patient's care. This medical document was created using an electronic medical record system with voice recognition software and computerized dictation system. Although this document has been carefully reviewed, there might still be some phonetic and typographical errors. Occasional wrong-word or ``sound-alike substitutions may have occurred due to the inherent limitations of voice recognition software. These areas are purely typographical due to imperfections of the software programs and do not reflect any compromise in the patient's medical care. Please read the chart carefully and recognize, using context, where these substitutions have occurred. Plan discussed with: Patient, Other Date of Service: Nov 17, 2024 Billing Provider: MABEL DURANT Cardiology Common Codes: [id number] HOSP CARE(High MABEL DURANT Nov 17, 2024 08:38
[2024-11-17 11:28] LABS: Basophils # (auto) 0 10 ^3/uL (0-0.2); Basophils % (auto) 0.1 % (0.0-2.0); Chloride 106 mmol/L (98-107); Eosinophils # (auto) 0.1 10 ^3/uL (0-0.8); Eosinophils % (auto) 1.4 % (0.0-7.0); Hematocrit 37.1 % (41.0-53.0); Hemoglobin 12.5 g/dL (13.5-17.5); Lymphocytes # (auto) 0.5 10 ^3/uL (0.4-5.4); Lymphocytes % (auto) 6.8 % (10.0-50.0); Mean Corpuscular Hemoglobin 30.8 pg (28.0-32.0); Mean Corpuscular Hgb Conc. 33.8 g/dL (32.0-36.0); Mean Corpuscular Volume 91.3 fL (80.0-100.0); Monocytes # (auto) 0.4 10 ^3/uL (0-1.3); Monocytes % (auto) 6.5 % (0.0-12.0); Neutrophils # (auto) 5.8 10 ^3/uL (1.6-8.6); Neutrophils % (auto) 85.2 % (37.0-80.0); Platelet Count (auto) 134 10^3/uL (140-450); Potassium 3.7 mmol/L (3.5-5.1); Red Blood Cells 4.06 10^6/uL (4.5-5.90); Red Cell Distribution Width 15.5 % (11.8-14.3); White Blood Cell 6.9 10^3/uL (4.4-10.8)
[2024-11-17 11:29] LABS: Anion Gap 7 (5-15); Calcium 8.9 mg/dL (8.7-10.4); Carbon Dioxide 21 mmol/L (20-31)
[2024-11-17 11:34] LABS: BUN/Creatinine Ratio 16.1 (10.0-20.0); Blood Urea Nitrogen 14 mg/dL (9-23); Glucose 93 mg/dL (74-106)
[2024-11-17 11:36] LABS: Sodium 134 mmol/L (136-145)
--- NOTE | 2024-11-17 13:26 | DVHPN2 ---
Subjective Patient denies any symptoms Reviewed: Care Plan, H&P, Labs, Medications Changes from previous H/P or p: No Changes Eyes: No Pain, No Vision change, No Conjunctivae inflammation, No Eyelid inflammation, No Other, No Redness ENT: No Ear pain, No Ear discharge, No Nose pain, No Nose discharge, No Nose congestion, No Mouth pain, No Mouth swelling, No Throat pain, No Throat swelling, No Other Cardiovascular: Chest Pain; No Palpitations, No Orthopnea, No Paroxysmal Noc. Dyspnea, No Edema, No Lt Headedness, No Other Respiratory: No Cough, No Dry; Shortness of breath, SOB with excertion; No Wheezing, No Hemoptysis, No Pleuritic Pain, No Sputum; Other (SOB at rest) Gastrointestinal: No Nausea, No Vomiting, No Abdominal Pain, No Diarrhea, No Constipation, No Melena, No Hematochezia, No Other Genitourinary: No Dysuria, No Frequency, No Incontinence, No Hematuria, No Retention, No Other Musculoskeletal: No other, No neck pain, No shoulder pain, No arm pain, No back pain, No hand pain, No leg pain, No foot pain Skin: No Rash, No Lesions, No Jaundice, No Bruising, No Other Objective Vitals Vital Signs Date Time Temp Pulse Resp B/P (MAP) Pulse Ox O2 Delivery O2 Flow Rate FiO2 11/17/24 10:02 93 124/67 11/17/24 09:00 98.1 18 99 98.1 11/16/24 20:00 Nasal Cannula* 2 28 Intake/Output Intake and Output 11/17/24 07:00 Intake Total 720 ml Output Total 852 ml Balance -132 ml Intake Oral 720 ml Output Urine Total 850 ml Stool Total 2 ml General Appearance: Alert, Oriented X3, Cooperative, No acute distress HEENT: Atraumatic, PERRLA Cardiovascular: Normal S1, Normal S2 Abdomen: Normal bowel sounds, Soft, No tenderness Genitourinary: No Apparent Abnormalities Musculoskeletal: Normal sensory function, Normal motor function Neuro: Normal gait, Normal speech Skin: Dry, Intact Psych/Mental Status: Mental status NL, Mood NL Medications Current Medications Medications Dose Ordered Sig/Gregorio Route Start Time Stop Time Status Last Admin Dose Admin Aspirin 81 mg DAILY PO 11/16/24 10:00 11/17/24 09:00 81 MG Nitroglycerin 0.4 mg Q5MINP PRN SL 11/15/24 15:30 Morphine Sulfate 2 mg Q30M PRN IV 11/15/24 15:30 Clopidogrel Bisulfate 75 mg DAILY PO 11/16/24 10:00 11/17/24 09:00 75 MG Atorvastatin Calcium 40 mg HS PO 11/15/24 22:00 11/16/24 21:09 40 MG Diagnostic Test (Pha) 1 strip ACHS 11/15/24 17:00 11/17/24 11:16 1 STRIP Insulin Human Regular ACHS SC 11/15/24 17:00 Dextrose 50 ml UD PRN IV 11/15/24 16:15 Sodium Chloride 1,000 ml @ 60 mls/hr [id number] IV 11/15/24 16:15 11/16/24 08:55 60 MLS/HR Acetaminophen/ Hydrocodone Bitart 1 tab Q4HP PRN PO 11/15/24 16:15 Ondansetron HCl 4 mg Q4HP PRN IV 11/15/24 16:15 Docusate Sodium 100 mg BIDPRN PRN PO 11/15/24 16:15 Acetaminophen 650 mg Q6HP PRN PO 11/15/24 16:15 Morphine Sulfate 2 mg Q4HPRN PRN IV 11/15/24 16:15 Nitroglycerin 0.4 mg Q5MINP PRN SL 11/15/24 16:15 Morphine Sulfate 2 mg Q30M PRN IV 11/15/24 16:15 Metoprolol Tartrate 12.5 mg BID PO 11/16/24 22:00 11/17/24 09:02 12.5 MG Laboratory Results Laboratory Tests 11/17/24 11:00 Chemistry Test 11/17/24 11:00 Calcium Level 8.9 mg/dL (8.7-10.4) Microbiology Microbiology Date/Time Source Procedure Growth Status 11/15/24 22:20 Nose MRSA Screen - Final Complete Labs and/or images reviewed: Labs reviewed by me, Image(s) reviewed by me Assessment/Plan Assessment/Plan Impression: -NSTEMI type 1 -history of coronary artery disease -history of AAA with endograft -dyslipidemia -primary hypertension -COPD -recent pneumonia treatment Plan: -cardiology consultation with plans for left heart catheterization. Patient was assessed in the preop area -continue dual antiplatelet therapy -antihypertensives -statin -bronchodilators p.r.n. -further course of treatment per Cardiology findings during [facility] Total time spent with patient discussing and formulating plan of care: 35 minutes. This medical document was created using an electronic medical record system with [employer] dictation system. Although this document has been carefully reviewed, there may still be some phonetic and typographical errors. These areas are purely typographical due to imperfections of the software programs, and do not reflect any compromise in the patient's medical care. Plan discussed with: Patient, Other (RN ) Date of Service: Nov 17, 2024 Billing Provider: PHUONG HOBBS NP Common Visit Codes: [id number] INP/OBS CARE(HIGH) PHUONG HOBBS NP Nov 17, 2024 13:26
--- NOTE | 2024-11-17 17:47 | DVHPN2 ---
Consult Progress Note Date Seen: Nov 17, 2024 Subjective Patient reports: Feels better (Complains of hematoma in right hand and ecchymosis throughout.) Review of Systems: HEENT:Normal, CVS:Abnormal ( Mild GERD), RESPIRATORY:Abnormal ( noted history of COPD), GI:Normal, :Abnormal ( noted history of BPH), MSK:Abnormal ( ecchymosis), NEURO:Normal Objective vital signs Vital Sign Date Time Temp Pulse Resp B/P (MAP) Pulse Ox O2 Delivery O2 Flow Rate FiO2 11/17/24 17:00 97.4 80 16 127/70 (89) 98 97.4 11/17/24 08:00 Nasal Cannula* 3 32 Total Intake and Output 11/16/24 11/16/24 11/17/24 15:00 23:00 07:00 Intake Total 420 ml 300 ml Output Total 852 ml Balance 420 ml -552 ml medications Current Medications Medications Dose Ordered Sig/Gregorio Route Start Time Stop Time Status Last Admin Dose Admin Aspirin 81 mg DAILY PO 11/16/24 10:00 11/17/24 09:00 81 MG Morphine Sulfate 2 mg Q30M PRN IV 11/15/24 15:30 Atorvastatin Calcium 40 mg HS PO 11/15/24 22:00 11/16/24 21:09 40 MG Sodium Chloride 1,000 ml @ 60 mls/hr [id number] IV 11/15/24 16:15 11/16/24 08:55 60 MLS/HR Acetaminophen/ Hydrocodone Bitart 1 tab Q4HP PRN PO 11/15/24 16:15 Ondansetron HCl 4 mg Q4HP PRN IV 11/15/24 16:15 Docusate Sodium 100 mg BIDPRN PRN PO 11/15/24 16:15 Acetaminophen 650 mg Q6HP PRN PO 11/15/24 16:15 Morphine Sulfate 2 mg Q4HPRN PRN IV 11/15/24 16:15 Nitroglycerin 0.4 mg Q5MINP PRN SL 11/15/24 16:15 Metoprolol Tartrate 12.5 mg BID PO 11/16/24 22:00 11/17/24 09:02 12.5 MG Ticagrelor 90 mg BID PO 11/17/24 22:00 UNV Examination: GENERAL:Normal, HEENT:Normal, NECK:Normal, LUNGS:Abnormal ( COPD noted diminished air entry. Increased AP diameter. No wheezing), CVS:Normal ( regular S1-S2. Soft S4.), ABDOMEN:Normal ( benign abdomen.), MSK:Normal, SKIN:Abnormal ( Ecchymosis in the right radial area and arms bilaterally) laboratory and microbiology Laboratory Tests 11/17/24 11:00 Test 11/17/24 11:00 Range/Units Serum Glucose 93 74-106 mg/dL Problem List/Assessment/Plan Problem List/Assessment/Plan Status post PTCA and stenting of the left anterior descending coronary artery. CAD. BPH. COPD. Recommendations: Switch to Brilinta. Continue with dual antiplatelet therapy. Ambulation in a.m.. Consider discharge if stable. Plan discussed with: Patient, Daughter, Other ( Dr. Rodriguez) Date of Service: Nov 17, 2024 Billing Provider: ANIVAL QUARLES Sr., MD Cardiology Common Codes: [id number] [facility] CARE(High ANIVAL QUARLES Sr., MD Nov 17, 2024 17:47
[2024-11-17] MEDS ORDERED: TICAGRELOR 90 MG TAB PO SCH (22:00)
[2024-11-17] MEDS: TICAGRELOR 90 MG TAB PO SCH (22:25)
[2024-11-18 01:00] VITALS: BP 110/60; PULSE 84; RESP 18; TEMP 98.4; O2SAT 96
[2024-11-18 05:00] VITALS: BP 118/73; PULSE 88; RESP 18; TEMP 98.4; O2SAT 96
[2024-11-18 07:12] LABS: Alanine Aminotransferase 26 U/L (7-40); Albumin 3.8 g/dL (3.2-4.8); Alkaline Phosphatase 75 U/L (46-116); Anion Gap 6 (5-15); Aspartate Aminotransferase 27 U/L (13-40); BUN/Creatinine Ratio 16.1 (10.0-20.0); Blood Urea Nitrogen 14 mg/dL (9-23); Carbon Dioxide 22 mmol/L (20-31); Chloride 103 mmol/L (98-107); Glucose 84 mg/dL (74-106); Potassium 3.7 mmol/L (3.5-5.1)
[2024-11-18 07:13] LABS: Bilirubin, Total 0.7 mg/dL (0.2-1.0); Total Protein 5.8 g/dL (5.7-8.2)
[2024-11-18 07:15] LABS: Calcium 8.5 mg/dL (8.7-10.4); Sodium 131 mmol/L (136-145)
[2024-11-18 08:00] VITALS: PULSE 87
[2024-11-18 09:00] VITALS: BP 111/75; PULSE 89; RESP 18; TEMP 98; O2SAT 95
--- NOTE | 2024-11-18 09:23 | DVHPN2 ---
Consult Progress Note Date Seen: Nov 18, 2024 Subjective Patient reports: Feels better Review of Systems: HEENT:Normal, CVS:Normal, RESPIRATORY:Abnormal (Noted COPD. Diminished air entry but no wheezing.), GI:Normal, :Normal, MSK:Normal ( Complains of ecchymosis), NEURO:Normal Objective vital signs Vital Sign Date Time Temp Pulse Resp B/P (MAP) Pulse Ox O2 Delivery O2 Flow Rate FiO2 11/18/24 08:55 100 120/69 11/18/24 05:00 98.4 18 96 98.4 11/17/24 20:00 Nasal Cannula* 3 32 Total Intake and Output 11/17/24 11/17/24 11/18/24 15:00 23:00 07:00 Intake Total 900 ml 400 ml Output Total 302 ml 600 ml Balance 598 ml -200 ml medications Current Medications Medications Dose Ordered Sig/Gregorio Route Start Time Stop Time Status Last Admin Dose Admin Aspirin 81 mg DAILY PO 11/16/24 10:00 11/18/24 08:54 81 MG Morphine Sulfate 2 mg Q30M PRN IV 11/15/24 15:30 Atorvastatin Calcium 40 mg HS PO 11/15/24 22:00 11/17/24 22:24 40 MG Sodium Chloride 1,000 ml @ 60 mls/hr [id number] IV 11/15/24 16:15 11/17/24 18:07 60 MLS/HR Acetaminophen/ Hydrocodone Bitart 1 tab Q4HP PRN PO 11/15/24 16:15 Ondansetron HCl 4 mg Q4HP PRN IV 11/15/24 16:15 Docusate Sodium 100 mg BIDPRN PRN PO 11/15/24 16:15 Acetaminophen 650 mg Q6HP PRN PO 11/15/24 16:15 Morphine Sulfate 2 mg Q4HPRN PRN IV 11/15/24 16:15 Nitroglycerin 0.4 mg Q5MINP PRN SL 11/15/24 16:15 Metoprolol Tartrate 12.5 mg BID PO 11/16/24 22:00 11/18/24 08:55 12.5 MG Ticagrelor 90 mg BID PO 11/17/24 22:00 11/18/24 08:54 90 MG Examination: GENERAL:Normal, HEENT:Normal, NECK:Normal, LUNGS:Abnormal ( as noted above. Noted COPD. Diminished air entry but without wheezing.), CVS:Normal, ABDOMEN:Normal, MSK:Normal, MSK:Abnormal ( Ecchymosis noted. Mild edema of the right hand. Removed pressure dressing from right wrist), SKIN:Abnormal ( ecchymosis noted in his arms and hands), NEURO:Normal, :Normal laboratory and microbiology Laboratory Tests 11/18/24 06:37 11/17/24 11:00 Test 11/18/24 06:37 Range/Units Serum Glucose 84 74-106 mg/dL Problem List/Assessment/Plan Problem List/Assessment/Plan Status post PTCA and stenting of the left anterior descending coronary artery. CAD. BPH. COPD.Stable today. Recommendations: Switch to Brilinta. Continue with dual antiplatelet therapy. Discharge today per Dr. Rodriguez Plan discussed with: Patient, Daughter Date of Service: Nov 18, 2024 Billing Provider: ANIVAL QUARLES Sr., MD Cardiology Common Codes: [id number] HOSP CARE(High ANIVAL QUARLES Sr., MD Nov 18, 2024 09:23
--- NOTE | 2024-11-18 11:55 | DVHPN2 ---
Consult Progress Note Subjective Other Systems: Denies any cardiac symptoms. Objective vital signs Vital Sign Date Time Temp Pulse Resp B/P (MAP) Pulse Ox O2 Delivery O2 Flow Rate FiO2 11/18/24 09:55 100 101/64 11/18/24 08:00 Nasal Cannula* 3 32 11/18/24 05:00 98.4 18 96 98.4 Total Intake and Output 11/17/24 11/17/24 11/18/24 15:00 23:00 07:00 Intake Total 900 ml 400 ml Output Total 302 ml 600 ml Balance 598 ml -200 ml medications Current Medications Medications Dose Ordered Sig/Gregorio Route Start Time Stop Time Status Last Admin Dose Admin Aspirin 81 mg DAILY PO 11/16/24 10:00 11/18/24 08:54 81 MG Morphine Sulfate 2 mg Q30M PRN IV 11/15/24 15:30 Atorvastatin Calcium 40 mg HS PO 11/15/24 22:00 11/17/24 22:24 40 MG Sodium Chloride 1,000 ml @ 60 mls/hr [id number] IV 11/15/24 16:15 11/17/24 18:07 60 MLS/HR Acetaminophen/ Hydrocodone Bitart 1 tab Q4HP PRN PO 11/15/24 16:15 Ondansetron HCl 4 mg Q4HP PRN IV 11/15/24 16:15 Docusate Sodium 100 mg BIDPRN PRN PO 11/15/24 16:15 Acetaminophen 650 mg Q6HP PRN PO 11/15/24 16:15 Morphine Sulfate 2 mg Q4HPRN PRN IV 11/15/24 16:15 Nitroglycerin 0.4 mg Q5MINP PRN SL 11/15/24 16:15 Metoprolol Tartrate 12.5 mg BID PO 11/16/24 22:00 11/18/24 08:55 12.5 MG Ticagrelor 90 mg BID PO 11/17/24 22:00 11/18/24 08:54 90 MG Examination: GENERAL:Normal, LUNGS:Normal, CVS:Normal, SKIN:Abnormal (ecchymosis), NEURO:Normal laboratory and microbiology Laboratory Tests 11/18/24 06:37 11/17/24 11:00 Test 11/18/24 06:37 Range/Units Serum Glucose 84 74-106 mg/dL Problem List/Assessment/Plan Problem List/Assessment/Plan Progressive coronary artery disease status post PCI of the LAD x 3DES Coronary artery disease status post PTCA with JASON x1 on 06/2024, on ASA Chronic compensated HFpEF History of AAA repair Hypertension Dyslipidemia Pre-diabetes, newly diagnosed Plan/Recommendation (Dr. Bedolla) The patient with chest pain underwent a successful PTCA and stenting of the LAD with successful intravascular ultrasound evaluation. A transthoracic echocardiogram revealed an LVEF of 50%. Continue DAPT, lipid-lowering agent, and beta-arnaldo. The patient was out of bed today and reports ambulating to the restroom. He denies any symptoms such as chest pain or shortness of breath. Patient has been scheduled to follow up with on 11/30/24 at 10:45am. There is no further inpatient cardiac workup indicated at this time. Thank you for allowing us to participate in this patient's care. This medical document was created using an electronic medical record system with voice recognition software and computerized dictation system. Although this document has been carefully reviewed, there might still be some phonetic and typographical errors. Occasional wrong-word or ``sound-alike substitutions may have occurred due to the inherent limitations of voice recognition software. These areas are purely typographical due to imperfections of the software programs and do not reflect any compromise in the patient's medical care. Please read the chart carefully and recognize, using context, where these substitutions have occurred. Plan discussed with: Patient Date of Service: Nov 18, 2024 Billing Provider: ALEX HYLTON Common Visit Codes: [id number] INP/OBS CARE(HIGH) ALEX HYLTON Nov 18, 2024 11:55
[2024-11-18 13:00] VITALS: BP 146/79; PULSE 90; RESP 20; TEMP 97.8; O2SAT 93
--- NOTE | 2024-11-18 14:39 | DVHDS2 ---
Discharge Summary Date of Admission Nov 15, 2024 at 16:04 Date of Discharge: Nov 18, 2024 Admitting Diagnosis NSTEMI type one Labs/Diagnostic Data: Laboratory Results Test 11/18/24 06:37 11/17/24 16:43 11/17/24 11:00 11/16/24 06:46 Sodium Level 131 mmol/L (136-145) Potassium Level 3.7 mmol/L (3.5-5.1) Chloride Level 103 mmol/L (98-107) Carbon Dioxide Level 22 mmol/L (20-31) Anion Gap 6 (5-15) Blood Urea Nitrogen 14 mg/dL (9-23) Creatinine 0.87 mg/dL (0.700-1.30) Glomerular Filtration Rate Calc 89 mL/min (>90) BUN/Creatinine Ratio 16.1 (10.0-20.0) Serum Glucose 84 mg/dL (74-106) Calcium Level 8.5 mg/dL (8.7-10.4) Total Bilirubin 0.7 mg/dL (0.2-1.0) Aspartate Amino Transferase (AST) 27 U/L (13-40) Alanine Aminotransferase (ALT) 26 U/L (7-40) Alkaline Phosphatase 75 U/L (46-116) Total Protein 5.8 g/dL (5.7-8.2) Albumin 3.8 g/dL (3.2-4.8) POC Glucose 81 mg/dl (70-106) White Blood Count 6.9 10^3/uL (4.4-10.8) Red Blood Count 4.06 10^6/uL (4.5-5.90) Hemoglobin 12.5 g/dL (13.5-17.5) Hematocrit 37.1 % (41.0-53.0) Mean Corpuscular Volume 91.3 fL (80.0-100.0) Mean Corpuscular Hemoglobin 30.8 pg (28.0-32.0) Mean Corpuscular Hemoglobin Concent 33.8 g/dL (32.0-36.0) Red Cell Distribution Width 15.5 % (11.8-14.3) Platelet Count 134 10^3/uL (140-450) Mean Platelet Volume 6.8 fL (6.9-10.8) Neutrophils (%) (Auto) 85.2 % (37.0-80.0) Lymphocytes (%) (Auto) 6.8 % (10.0-50.0) Monocytes (%) (Auto) 6.5 % (0.0-12.0) Eosinophils (%) (Auto) 1.4 % (0.0-7.0) Basophils (%) (Auto) 0.1 % (0.0-2.0) Neutrophils # (Auto) 5.8 10 ^3/uL (1.6-8.6) Lymphocytes # (Auto) 0.5 10 ^3/uL (0.4-5.4) Monocytes # (Auto) 0.4 10 ^3/uL (0-1.3) Eosinophils # (Auto) 0.1 10 ^3/uL (0-0.8) Basophils # (Auto) 0 10 ^3/uL (0-0.2) Nucleated Red Blood Cells 0.0 % Prothrombin Time 11.7 sec (9.3-11.8) Prothrombin Time INR 1.12 (0.9-1.15) Activated Partial Thromboplast Time 45.8 SEC (24.5-34.5) Troponin I High Sensitivity 848 ng/L (</=54) Test 11/15/24 13:06 Hemoglobin A1c 5.7 % A1C (<5.7) Magnesium Level 2.1 mg/dL (1.6-2.6) B-Type Natriuretic Peptide 100.61 pg/mL (0-100) Triglycerides Level 147 mg/dL (< 150) Cholesterol Level 140 mg/dL (< 200) LDL Cholesterol 47 mg/dL (< 100) HDL Cholesterol 60 mg/dL (40-59) Thyroid Stimulating Hormone (TSH) 0.83 uIU/mL (0.55-4.78) Other Laboratory Tests 11/18/24 06:37 11/17/24 11:00 Brief Hx & Hospital Course: History of Present Illness The patient is a 79-year-old male with multiple past medical history including COPD, CHF, MA, and diabetes mellitus who presented to [facility] ED with complaint of chest pain. Patient reports symptoms progressively get worse with substernal chest pain, sharp in nature, constant, associated shortness of breaths on exertion, SOB at rest, getting worse that prompted this visit. Patient was seen and evaluated in the ED, laboratory data shows WBC 9.0, platelets 2 one three, sodium 131, potassium 3.7, BUN 22, creatinine 1.04, GFR 74, glucose 104, BNP 100, troponin was 169. Chest x-ray show no acute cardiopulmonary disease. Patient was given aspirin 162 mg p.o. x1, consult cardiology, please see medication orders section in the computer. On my assessment, patient denies chest pain at this moment, no dizziness, no headache, no diaphoresis, currently on oxygen, no nausea, no vomiting, no fever, no chills. Patient was admitted for further evaluation and medical management. Course of hospitalization: Cardiology consultation was obtained. Patient had left heart catheterization on 11/16/2024. Patient had PTCA and stent placement to LAD. Patient was also found to have ejection fraction 50% on echocardiogram. Patient was started on ACS protocol including beta-arnaldo therapy, statin, as well as dual antiplatelet therapy, initially with Plavix, switching to Brilinta and aspirin while in the hospital. Patient has been cleared for discharge by Cardiology. He will follow up at established appointment. He will continue on dual antiplatelet therapy as well as beta arnaldo and statin then has been previously prescribed to him. He states that he has adequate supply and does not need a new prescription. All questions answered. Physical examination General: Alert and Oriented x3. No acute distress. Well-nourished. Eyes: EOMI. Anicteric. HENT: Moist mucous membranes. Lungs: Clear to auscultation bilaterally. No accessory muscle use. Cardiovascular: Regular rate and rhythm. No murmur. No JVD. Abdomen: Soft, non-tender and non-distended. No palpable masses. Extremities: No edema. Non-tender. Skin: No rashes or lesions. Warm. Neurologic: No focal neurological deficits. CN II-XII grossly intact, but not individually tested. Psychiatric: Cooperative. Appropriate mood and affect. Total time spent with patient discussing and formulating plan of care: 35 minutes. This medical document was created using an electronic medical record system with [employer] dictation system. Although this document has been carefully reviewed, there may still be some phonetic and typographical errors. These areas are purely typographical due to imperfections of the software programs, and do not reflect any compromise in the patient's medical care. Consults/Reason for consult Cardiology: NSTEMI Operations or Procedures Left heart catheterization with PTCA and stent placement to LAD on 11/16/2024 Condition at Discharge: Good Final Diagnosis/Problems List NSTEMI I. Successful angioplasty and stenting of LAD Secondary Diagnosis: -NSTEMI type 1 -history of coronary artery disease -history of AAA with endograft -dyslipidemia -primary hypertension -COPD -recent pneumonia treatment Discharge Disposition: Home Discharge Instruct/Medications Diet: Cardiac 2g Na,low cholest Activity: No Restrictions, As Tolerated Follow Up/Referral: Dr. Bedolla at scheduled appointment PCP in 1-2 weeks Medications: Brilinta 90mg po bid Asa 81mg po daily Continue all home medications 36 Discharge Statement: "Patient was advised to return to the ER or call 911 if any headaches, dizziness, shortness of breath, chest pain, abdominal pain, bleeding, fevers, or worsening of medical condition. Patient was counseled about treatment plan, medications, possible side effects, patientverbalized understanding. All questions were answered to the best of my ability. This discharge took greater then 30 minutes in planning, reviewing documentation, counseling the patient, and discussing with other team members." ASSESSMENT ASSESSMENT Assessment NSTEMI I. Successful angioplasty and stenting of LAD Date of Service: Nov 18, 2024 Billing Provider: PHUONG HOBBS NP Common Visit Codes: 23839-BRS/OBS DISCH DAY >30min PHUONG HOBBS NP Nov 18, 2024 14:39
== END 2024-11-18 16:32 | disposition home or self-care (01) | DRG 323 ==
LOC: EDBD 12:04 → ER 12:04 → TELE 16:04 → TELE-WESTW 21:26
PROVIDERS: ADMIT Nurse Practitioner Acute Care; ATTEND Nurse Practitioner Acute Care
PROC: 02F03ZZ Fragmentation in Coronary Artery, One Artery, Percutaneous Approach (ICD-10-PCS; principal; 2024-11-16)
PROC: 027036Z Dilation of Coronary Artery, One Artery with Three Drug-eluting Intraluminal Devices, Percutaneous Approach (ICD-10-PCS; 2024-11-16)
PROC: 4A023N7 Measurement of Cardiac Sampling and Pressure, Left Heart, Percutaneous Approach (ICD-10-PCS; 2024-11-16)
PROC: B211YZZ Fluoroscopy of Multiple Coronary Arteries using Other Contrast (ICD-10-PCS; 2024-11-16)
PROC: B215YZZ Fluoroscopy of Left Heart using Other Contrast (ICD-10-PCS; 2024-11-16)
DX: I25.110 Atherosclerotic heart disease of native coronary artery with unstable angina pectoris (principal); I21.4 Non-ST elevation (NSTEMI) myocardial infarction; I50.32 Chronic diastolic (congestive) heart failure; E78.5 Hyperlipidemia, unspecified; I11.0 Hypertensive heart disease with heart failure; E11.9 Type 2 diabetes mellitus without complications; J44.9 Chronic obstructive pulmonary disease, unspecified; N40.0 Benign prostatic hyperplasia without lower urinary tract symptoms; Z90.49 Acquired absence of other specified parts of digestive tract; Z87.891 Personal history of nicotine dependence; Z99.81 Dependence on supplemental oxygen; Z95.5 Presence of coronary angioplasty implant and graft; Z86.79 Personal history of other diseases of the circulatory system
CPT/HCPCS: 36415; 71045; 80048; 80053; 80061; 82962; 83036; 83735; 83880; 84443; 84484; 85025; 85610; 85730; 87081; 93005; 93306; 96374; 99152; 99291; C1874; C1887; G0378; J2250; Q9967